=== PATIENT | female | born 2000 | race Caucasian/White ===

== ENCOUNTER 2020-03-05 07:50 | Emergency (ER) | payer BC ==
[2020-03-05 07:58] VITALS: BP 149/85; PULSE 94; TEMP 99.1; BMI 39.2
[2020-03-05] MEDS ORDERED: ACETAMINOPHEN 1000 MG/100 ML VIAL (NON FORMULARY) IVPB ONE (08:09)
[2020-03-05] MEDS ORDERED: SODIUM CHLORIDE 1,000 ML IV STA (08:09)
[2020-03-05] MEDS ORDERED: ACETAMINOPHEN INJECTION 100 ML IVPB ONE (08:21)
[2020-03-05 08:51] LABS: BASO % 0.9 % (0-2.0); EOS % 1.3 % (0-4.5); HEMATOCRIT 37.8 % (32.4-45.2); HEMOGLOBIN 12.7 GM/dl (10.7-15.3); LYMPH % 31.9 % (8-40); MCH 31.6 pg (25.7-33.7); MCHC 33.5 g/dl (32.0-36.0); MEAN CELL VOLUME 94.1 fl (80-96); MEAN PLT VOLUME 8.3 fl (7.5-11.1); MONO % 4.9 % (3.8-10.2); PLATELET COUNT 259 K/MM3 (134-434); RBC 4.02 M/mm3 (3.60-5.2); RDW 12.6 % (11.6-15.6); WHITE BLOOD COUNT 9.4 K/mm3 (4.0-10.8)
[2020-03-05 08:57] LABS: ALBUMIN 3.9 g/dl (3.4-5.0); BILIRUBIN,TOTAL 0.9 mg/dl (0.2-1); CALCIUM 8.8 mg/dl (8.5-10); CREATININE 0.7 mg/dl (0.55-1.3); POTASSIUM 3.8 mmol/L (3.5-5.1)
[2020-03-05 09:12] LABS: HCG,QUALITATIVE URINE POSITIVE
[2020-03-05 09:18] LABS: EPITHELIAL CELLS FEW /hpf
== END 2020-03-05 12:33 | disposition home or self-care (01) ==
LOC: FER 07:50
PROC: 3E033NZ Introduction of Analgesics, Hypnotics, Sedatives into Peripheral Vein, Percutaneous Approach (ICD-10-PCS; principal; 2020-03-05)
PROC: 3E0337Z Introduction of Electrolytic and Water Balance Substance into Peripheral Vein, Percutaneous Approach (ICD-10-PCS; 2020-03-05)
DX: R10.2 Pelvic and perineal pain (principal); R11.0 Nausea; Z32.01 Encounter for pregnancy test, result positive
CPT/HCPCS: 36415; 76830-TC; 76856-TC; 80053; 81003; 81015; 83690; 84702; 84703; 85025; 87086; 99285-25; J0131